=== PATIENT | female | born 1990 | race African-American/Black ===

== ENCOUNTER 2023-02-26 18:37 | Inpatient (IN) | payer BC, MEDICAID, OTHER ==
[2023-02-26] MEDS ORDERED: Tranexamic Acid 1,000 MG/10 ML VIAL IVP PRN (18:40)
[2023-02-26] MEDS ORDERED: fentaNYL 50 mcg/mL 1 mL Vial SLOW IVP PRN (18:40)
[2023-02-26] MEDS ORDERED: Lidocaine 1% (PF) 30 ML VIAL SC PRN (18:40)
[2023-02-26] MEDS ORDERED: Ondansetron PF 4 MG/2 ML Vial IVP PRN (18:40)
[2023-02-26] MEDS ORDERED: hydrALAZINE 20 MG/ML VIAL SLOW IVP PRN (18:40)
[2023-02-26] MEDS ORDERED: Methylergonovine 0.2 MG/ML VIAL IM PRN (18:40)
[2023-02-26] MEDS ORDERED: Diphenoxylate HCl/Atropine Tablet PO PRN (18:40)
[2023-02-26] MEDS ORDERED: HYDROcodone/Acetaminophen 5/325 mg Tablet PO PRN (18:40)
[2023-02-26] MEDS ORDERED: Promethazine HCl 25 MG/ML VIAL IM PRN (18:40)
[2023-02-26] MEDS ORDERED: Misoprostol 200 MCG TAB PR PRN (18:40)
[2023-02-26] MEDS ORDERED: Carboprost 250 MCG/ML AMP IM PRN (18:40)
[2023-02-26] MEDS ORDERED: Ibuprofen 800 MG TAB PO PRN (18:40)
[2023-02-26 20:07] VITALS: BMI 55.5
[2023-02-26 20:08] LABS: Hematocrit 31.5 % (34.9-44.5); Hemoglobin 10.7 g/dL (12.0-15.5); Mean Corpuscular Hemoglobin 29.1 pg (27.0-33.0); Mean Corpuscular Volume 85.6 fl (81.6-98.3); Mean Platelet Volume 11.3 fl (7.4-10.4); Platelet Count 252 10x3/uL (150-450); RBC Distribution Width 13.9 % (11.5-14.5); Red Blood Cell (RBC) Count 3.68 10x6/uL (3.90-5.03); White Blood Cell (WBC) Count 14.6 10x3/uL (3.5-10.5)
[2023-02-26] MEDS ORDERED: Misoprostol 100 MCG TAB ONE (20:10)
[2023-02-26] MEDS: Misoprostol 100 MCG TAB VAG SCH (20:15)
[2023-02-26] MEDS ORDERED: NS w/ Oxytocin 30 units 500 ML IV SCH ×2 (20:15)
[2023-02-26 20:22] LABS: ALT (SGPT) 11 U/L (8-55); AST (SGOT) 10 U/L (5-34); Albumin 3.3 g/dL (3.5-5.0); Alkaline Phosphatase 172 U/L (40-110); Anion Gap 13 mmol/L (10-20); BUN (Urea Nitrogen) 9 mg/dL (7.0-18.7); Bilirubin, Total 0.2 mg/dL (0.2-1.2); Calc. Creatinine Clearance 298 mL/min (70-130); Calcium 8.9 mg/dL (7.8-10.44); Carbon Dioxide 20 mmol/L (22-29); Chloride 108 mmol/L (98-107); Estimated GFR 120; Glucose 76 mg/dL (70-105); Potassium 3.4 mmol/L (3.5-5.1); Protein, Total 6.3 g/dL (6.0-8.3); Sodium 138 mmol/L (136-145)
[2023-02-26] MEDS ORDERED: Penicillin G Potassium 5 MILL.UNITS in Sodium Chloride 0.9% 100 ML IVPB SCH (20:30)
[2023-02-26 20:40] LABS: Hep B Surf Ag - L&D Non-Reactive S/CO (NonReactive); Syphilis Antibody Nonreactive (Nonreactive); Syphilis Antibody Index 0.03 S/CO (<1.00 Non-Reactive)
[2023-02-26] MEDS ORDERED: Calcium Carbonate 500 MG ChewTAB PO PRN (22:00)
[2023-02-27] MEDS: Penicillin G 2.5 MILL.units 2.5 MILL.UNITS in Premix Bag 1 BAG IVPB SCH ×2 (00:50→04:49)
[2023-02-27] MEDS: Misoprostol 100 MCG TAB VAG SCH (01:15)
[2023-02-27] MEDS ORDERED: fentaNYL/Ropivacaine Epidural 100 ML ONE (16:46)
[2023-02-27] MEDS ORDERED: ePHEDrine Sulfate 50 MG/10 ML VIAL SLOW IVP PRN (17:15)
[2023-02-27] MEDS ORDERED: Naloxone HCl 0.4 mg/ml Vial IVP PRN ×2 (17:15)
[2023-02-27] MEDS ORDERED: diphenhydrAMINE 50 MG/ML VIAL IVP PRN (17:15)
[2023-02-27] MEDS ORDERED: Acetaminophen 325 MG TAB PO PRN (17:15)
[2023-02-27] MEDS ORDERED: Ondansetron PF 4 MG/2 ML Vial IVP PRN (17:15)
[2023-02-27] MEDS ORDERED: Moisturizing Cream (Eucerin) 113 GM JAR TOP PRN (17:15)
[2023-02-27] MEDS ORDERED: Communication Order-Pharmacy FS SCH (17:15)
[2023-02-27] MEDS ORDERED: Lactated Ringer's 500 ML IV PRN (17:15)
[2023-02-27] MEDS ORDERED: Promethazine HCl 25 MG/ML VIAL IM PRN (17:15)
[2023-02-27] MEDS: fentaNYL 2 mcg/Ropivacaine 0.2% Epidural 100 ML CADD EPIDURAL SCH (22:26)
[2023-02-27] MEDS: Lactated Ringer's 1,000 ML IV SCH (22:26)
[2023-02-28] MEDS ORDERED: Zolpidem Tartrate 5 MG TAB PO PRN ×2 (00:04→16:06)
[2023-02-28] MEDS: Penicillin G 2.5 MILL.units 2.5 MILL.UNITS in Premix Bag 1 BAG IVPB SCH ×3 (00:15→10:21)
[2023-02-28] MEDS: fentaNYL 2 mcg/Ropivacaine 0.2% Epidural 100 ML CADD EPIDURAL SCH (08:02)
[2023-02-28] MEDS: Lactated Ringer's 1,000 ML IV SCH (10:45)
[2023-02-28] MEDS ORDERED: CEFAZOLIN 1 GM VIAL ONE (13:20)
[2023-02-28] MEDS ORDERED: Azithromycin 500 MG VIAL ONE (13:20)
[2023-02-28] MEDS ORDERED: CEFAZOLIN 2 GM VIAL ONE (13:21)
[2023-02-28] MEDS ORDERED: Famotidine/PF 20 mg/2ml Vial SLOW IVP PRN (13:35)
[2023-02-28] MEDS ORDERED: Bicitra 30 ML UDCUP PO PRN (13:35)
[2023-02-28] MEDS ORDERED: CEFAZOLIN 3 GM in Sodium Chloride 0.9% 100 ML IVPB SCH (13:45)
[2023-02-28] MEDS ORDERED: Azithromycin 500 MG in Sodium Chloride 0.9% 250 ML 250 ML IVPB SCH (13:45)
[2023-02-28] MEDS ORDERED: Moisturizing Cream (Eucerin) 113 GM JAR TOP PRN (13:46)
[2023-02-28] MEDS ORDERED: Promethazine HCl 25 MG/ML VIAL IM PRN ×2 (13:46→16:06)
[2023-02-28] MEDS ORDERED: diphenhydrAMINE 50 MG/ML VIAL IVP PRN (13:46)
[2023-02-28] MEDS ORDERED: Promethazine HCl 25 MG SUPP PR PRN (13:46)
[2023-02-28] MEDS ORDERED: Naloxone HCl 0.4 mg/ml Vial IVP PRN ×2 (13:46)
[2023-02-28] MEDS ORDERED: Ondansetron PF 4 MG/2 ML Vial IVP PRN ×2 (13:46→16:06)
[2023-02-28] MEDS ORDERED: Meperidine HCl/PF 25 MG/ML VIAL SLOW IVP PRN (13:46)
[2023-02-28] MEDS ORDERED: Naloxone HCl 0.4 mg/ml Vial IV PRN (13:46)
[2023-02-28] MEDS ORDERED: Ondansetron HCl/PF 4 MG/2 ML Vial IVP PRN (13:46)
[2023-02-28] MEDS ORDERED: Fentanyl 50 MCG/1 ML VIAL SLOW IVP PRN (13:46)
[2023-02-28] MEDS ORDERED: Dexamethasone 4 mg/ml Vial ONE (13:53)
[2023-02-28] MEDS ORDERED: Ondansetron PF 4 MG/2 ML Vial ONE (13:53)
[2023-02-28] MEDS ORDERED: Oxytocin 10 UNITS/ML VIAL ONE (13:53)
[2023-02-28] MEDS ORDERED: Ketorolac Tromethamine 30 MG/ML VIAL ONE (13:53)
[2023-02-28] MEDS ORDERED: fentaNYL 50 mcg/mL 1 mL Vial ONE (14:00)
[2023-02-28] MEDS ORDERED: Carboprost 250 MCG/ML AMP ONE (14:00)
[2023-02-28] MEDS ORDERED: Lidocaine 2% MPF 10 ML AMP (For Epidural Use) ONE (14:00)
[2023-02-28] MEDS ORDERED: Misoprostol 200 MCG TAB ONE (14:00)
[2023-02-28] MEDS ORDERED: Tranexamic Acid 1,000 MG/10 ML VIAL ONE (14:00)
[2023-02-28] MEDS ORDERED: Communication Order-Pharmacy FS SCH (14:00)
[2023-02-28] MEDS ORDERED: Morphine PF 10 MG/10 ML VIAL ONE (14:06)
[2023-02-28] MEDS ORDERED: PHENYLEPHRINE-NS 100 MCG/ML 10 ML SYRINGE ONE (14:08)
[2023-02-28] MEDS ORDERED: Boostrix 0.5 ML (Tdap) VIAL (>/=7 yrs of age) IM ONE (16:06)
[2023-02-28] MEDS ORDERED: Acetaminophen 325 MG TAB PO PRN (16:06)
[2023-02-28] MEDS ORDERED: diphenhydrAMINE 25 MG CAP PO PRN (16:06)
[2023-02-28] MEDS ORDERED: Bisacodyl 10 MG SUPP PR PRN (16:06)
[2023-02-28] MEDS ORDERED: Lanolin Ointment 7 GM TUBE TOP PRN (16:06)
[2023-02-28] MEDS ORDERED: hydrALAZINE 20 MG/ML VIAL SLOW IVP PRN (16:06)
[2023-02-28] MEDS: Docusate 100 MG CAP PO SCH (20:31)
[2023-02-28] MEDS: Ketorolac Tromethamine 30 MG/ML VIAL IVP SCH (20:31)
[2023-02-28] MEDS: Ferrous Sulfate 325 MG TAB PO SCH (20:55)
[2023-03-01] MEDS ORDERED: HYDROcodone/Acetaminophen 5/325 mg Tablet PO PRN (02:00)
[2023-03-01] MEDS: Ketorolac Tromethamine 30 MG/ML VIAL IVP SCH ×3 (02:24→13:30)
[2023-03-01 06:19] LABS: Hematocrit 27.8 % (34.9-44.5); Hemoglobin 9.2 g/dL (12.0-15.5); Mean Corpuscular HGB CONC 33.1 g/dL (32.0-36.0); Mean Corpuscular Hemoglobin 28.7 pg (27.0-33.0); Mean Corpuscular Volume 86.6 fl (81.6-98.3); Mean Platelet Volume 11.8 fl (7.4-10.4); Platelet Count 221 10x3/uL (150-450); RBC Distribution Width 13.7 % (11.5-14.5); Red Blood Cell (RBC) Count 3.21 10x6/uL (3.90-5.03); White Blood Cell (WBC) Count 17.2 10x3/uL (3.5-10.5)
[2023-03-01] MEDS: HYDROcodone/Acetaminophen 5/325 mg Tablet PO PRN ×4 (06:47→21:16)
[2023-03-01] MEDS: Ferrous Sulfate 325 MG TAB PO SCH ×2 (08:17→21:14)
[2023-03-01] MEDS: Prenatal Vitamin 1 TAB PO SCH (08:17)
[2023-03-01] MEDS: Docusate 100 MG CAP PO SCH ×2 (08:17→21:15)
[2023-03-01] MEDS: Ibuprofen 800 MG TAB PO SCH (21:15)
[2023-03-01] MEDS: Simethicone Chewable 80 MG TAB PO PRN (21:15)
[2023-03-02] MEDS: Simethicone Chewable 80 MG TAB PO PRN (03:21)
[2023-03-02] MEDS: HYDROcodone/Acetaminophen 5/325 mg Tablet PO PRN ×5 (03:21→21:52)
[2023-03-02] MEDS: Ibuprofen 800 MG TAB PO SCH ×3 (05:59→21:51)
[2023-03-02] MEDS: Docusate 100 MG CAP PO SCH ×2 (08:37→21:51)
[2023-03-02] MEDS: Prenatal Vitamin 1 TAB PO SCH (08:37)
[2023-03-02] MEDS: Ferrous Sulfate 325 MG TAB PO SCH ×2 (08:37→21:51)
[2023-03-02] MEDS: Misoprostol 100 MCG TAB VAG SCH ×2 (14:12→14:13)
[2023-03-02] MEDS: Lactated Ringer's 1,000 ML IV SCH (14:13)
[2023-03-02] MEDS: Penicillin G 2.5 MILL.units 2.5 MILL.UNITS in Premix Bag 1 BAG IVPB SCH (14:14)
[2023-03-03] MEDS: HYDROcodone/Acetaminophen 5/325 mg Tablet PO PRN ×3 (01:17→11:21)
[2023-03-03] MEDS: Ibuprofen 800 MG TAB PO SCH ×3 (06:21→21:38)
[2023-03-03] MEDS: Docusate 100 MG CAP PO SCH ×2 (09:25→20:16)
[2023-03-03] MEDS: Ferrous Sulfate 325 MG TAB PO SCH ×2 (09:26→20:17)
[2023-03-03] MEDS: Prenatal Vitamin 1 TAB PO SCH (09:26)
[2023-03-03] MEDS ORDERED: Hydrocodone-Acetamin 15 ML UDCUP PO PRN ×3 (13:41→15:20)
[2023-03-03] MEDS ORDERED: HYDROcodone/Acetaminophen 7.5/325 mg Tablet PO PRN ×2 (14:35→15:45)
[2023-03-03] MEDS: HYDROcodone/Acetaminophen 7.5/325 mg Tablet PO PRN ×2 (15:59→20:17)
[2023-03-03] MEDS: Simethicone Chewable 80 MG TAB PO PRN (20:16)
[2023-03-04] MEDS: HYDROcodone/Acetaminophen 7.5/325 mg Tablet PO PRN ×4 (01:10→13:50)
[2023-03-04] MEDS: Simethicone Chewable 80 MG TAB PO PRN (05:04)
[2023-03-04] MEDS: Ibuprofen 800 MG TAB PO SCH ×2 (05:04→13:38)
[2023-03-04] MEDS: Prenatal Vitamin 1 TAB PO SCH (09:38)
[2023-03-04] MEDS: Ferrous Sulfate 325 MG TAB PO SCH (09:38)
[2023-03-04] MEDS: Docusate 100 MG CAP PO SCH (09:38)
[2023-03-04 11:22] VITALS: BP 119/57; TEMP 98.3
== END 2023-03-04 14:45 | disposition home or self-care (01) | DRG 788 ==
LOC: CSHLD 18:37 → CSHPP 02-28 18:10
PROVIDERS: ADMIT Student in an Organized Health Care Education/Training Program; ATTEND Student in an Organized Health Care Education/Training Program
PROC: 10D00Z1 Extraction of Products of Conception, Low, Open Approach (ICD-10-PCS; principal; 2023-02-28)
PROC: 10H07YZ Insertion of Other Device into Products of Conception, Via Natural or Artificial Opening (ICD-10-PCS; 2023-02-28)
PROC: 10907ZC Drainage of Amniotic Fluid, Therapeutic from Products of Conception, Via Natural or Artificial Opening (ICD-10-PCS; 2023-02-28)
DX: O13.4 Gestational [pregnancy-induced] hypertension without significant proteinuria, complicating childbirth (principal); Z3A.37 37 weeks gestation of pregnancy; Z37.0 Single live birth; O61.9 Failed induction of labor, unspecified; O99.344 Other mental disorders complicating childbirth; F41.9 Anxiety disorder, unspecified; F32.A Depression, unspecified; O99.284 Endocrine, nutritional and metabolic diseases complicating childbirth; E03.9 Hypothyroidism, unspecified; O99.214 Obesity complicating childbirth; Z88.1 Allergy status to other antibiotic agents
CPT/HCPCS: 36415; 51702; 80053; 85027; 86780; 86850; 86900; 86901; 87340; J1100; J1885; J2274; J2405; J2540; J2550; J2590; J3010; J3490; J7120